=== PATIENT | female | born 1990 | race Caucasian/White ===

== ENCOUNTER 2017-02-09 09:59 | Inpatient (IN) | payer OTHER ==
[~2017-02-09] VITALS: Ht 160 cm; Wt 46.7 kg
[2017-02-12] MEDS ORDERED: ONDANSETRON ODT 4 MG TAB.RAPDIS SL PRN (20:30)
[2017-02-12] MEDS ORDERED: IBUPROFEN 600 MG TABLET PO PRN (20:30)
[2017-02-12] MEDS ORDERED: DEXTROSE 50% 50 ML DISP.SYRIN IV PRN (20:30)
[2017-02-12] MEDS ORDERED: LORAZEPAM 2 MG/1 ML VIAL IM PRN (20:30)
[2017-02-12] MEDS ORDERED: DICYCLOMINE HCL 20 MG TABLET PO PRN (20:30)
[2017-02-12] MEDS ORDERED: MAG HYDROX/AL HYDROX/SIMETH 30 ML LIQUID UDC PO PRN (20:30)
[2017-02-12] MEDS ORDERED: ONDANSETRON 4 MG/2 ML VIAL IM PRN (20:30)
[2017-02-12] MEDS ORDERED: LOPERAMIDE HCL 2 MG CAPSULE PO PRN ×2 (20:30)
[2017-02-12] MEDS ORDERED: BUPRENORPHINE HCL 2 MG TAB.SUBL SL PRN (20:30)
[2017-02-12] MEDS ORDERED: MAGNESIUM HYDROXIDE 30 ML LIQUID UDC PO PRN (20:30)
[2017-02-12] MEDS ORDERED: ACETAMINOPHEN 325 MG TABLET PO PRN (20:30)
[2017-02-12] MEDS ORDERED: DIAZEPAM 5 MG TABLET PO PRN (20:30)
[2017-02-12] MEDS ORDERED: MIRALAX 17 GM POWD.PACK PO PRN (20:30)
[2017-02-12] MEDS: BLOOD SUGAR DIAGNOSTIC 1 EACH STRIP VI SCH (21:00)
[2017-02-12] MEDS ORDERED: INSULIN GLARGINE,HUM 300 UNITS/3 ML CARTRIDGE SQ SCH (21:00)
[2017-02-12 21:08] LABS: BASOPHILS # (AUTO) 0.4 K/uL (0.0-8.0); EOSINOPHILS % (AUTO) 0.2 % (0.0-7.0); HEMATOCRIT 44.5 % (37-47); HEMOGLOBIN 14.9 G/DL (12.0-16.0); LYMPHOCYTES # (AUTO) 4.9 K/UL (0.8-4.8); LYMPHOCYTES % (AUTO) 37.4 % (20.5-51.5); MEAN CORPUSCULAR HEMOGLOBIN 28.9 UUG (27.0-31.0); MEAN CORPUSCULAR HGB CONC 34 g/dL (32.0-37.0); MEAN CORPUSCULAR VOLUME 86.2 FL (81.0-99.0); MONOCYTES # (AUTO) 1.1 K/UL (0.1-1.30); MONOCYTES % (AUTO) 8.4 % (0.0-11.0); NEUTROPHILS # (AUTO) 6.8 K/UL (1.8-8.9); PLATELET COUNT (AUTO) 416 K/UL (150-450); RED BLOOD CELL COUNT(AUTO) 5.16 MIL/UL (4.2-5.4); WHITE BLOOD COUNT (AUTO) 13.2 K/UL (4.0-11.2)
[2017-02-12 21:13] LABS: *URINE HCG, QUAL NEGATIVE (NEGATIVE)
[2017-02-12 21:20] LABS: ETHANOL < 3 MG/DL (0-0)
[2017-02-12 21:20] LABS: *AMPHETAMINE, URINE NEGATIVE (NEGATIVE); *BARBITURATE, URINE NEGATIVE (NEGATIVE); *CANNABINOID, URINE NEGATIVE (NEGATIVE); *COCCAINE, URINE POSITIVE (NEGATIVE); *OPIATE, URINE POSITIVE (NEGATIVE); *PHENCYCLIDINE SCREEN,URINE NEGATIVE (NEGATIVE)
[2017-02-12 21:21] LABS: ALANINE AMINOTRANSFERASE 20 U/L (14-59); ALKALINE PHOSPHATASE 155 U/L (50-136); ASPARTATE AMINOTRANSFERASE 20 U/L (15-37); BILIRUBIN,TOTAL 0.5 mg/dL (0.2-1.0); CARBON DIOXIDE 24 mmol/L (21-32); CHLORIDE 93 mmol/L (98-107); CREATININE 1.3 mg/dL (0.6-1.3); GLUCOSE 239 mg/dL (74-106); MAGNESIUM 1.7 mg/dL (1.8-2.4); POTASSIUM 4.8 mmol/L (3.5-5.1); TOTAL PROTEIN, SERUM 8.3 g/dL (6.4-8.2); UREA NITROGEN, BLOOD 16 mg/dL (7-18)
[2017-02-12] MEDS ORDERED: INSU100V10 SQ (21:33)
[2017-02-12] MEDS ORDERED: ONDA4TAB11 SL (21:33)
[2017-02-12] MEDS ORDERED: BUPR8TAB4 SL (21:39)
[2017-02-12] MEDS ORDERED: CEPH-570 PO (21:39)
[2017-02-12] MEDS ORDERED: SULF1TAB48 PO (21:39)
[2017-02-12] MEDS ORDERED: INSULIN REGULAR, HUMAN 300 UNIT/3 ML VIAL ONE (21:39)
[2017-02-12] MEDS ORDERED: INSU200I SQ (21:43)
[2017-02-12] MEDS ORDERED: INSULIN DETEMIR 300 UNIT/3 ML CARTRIDGE SQ ONE ×2 (21:45→21:58)
[2017-02-12] MEDS ORDERED: DIAZEPAM 10 MG TABLET PO SCH (22:00)
[2017-02-12] MEDS: INSULIN REGULAR, HUMAN 300 UNITS/3 ML VIAL SQ PRN (22:07)
[2017-02-12] MEDS: GABAPENTIN 300 MG CAPSULE PO SCH (22:08)
[2017-02-12] MEDS ORDERED: GABAPENTIN 300 MG CAPSULE ONE (22:08)
[2017-02-12] MEDS ORDERED: DIAZEPAM 10 MG TABLET ONE (22:09)
[2017-02-12] MEDS: diphenhydrAMINE 50 MG CAPSULE PO PRN (23:30)
[2017-02-12] MEDS: METHOCARBAMOL 750 MG TABLET PO PRN (23:31)
[2017-02-12] MEDS ORDERED: diphenhydrAMINE 50 MG CAPSULE ONE (23:40)
[2017-02-12] MEDS ORDERED: METHOCARBAMOL 750 MG TABLET ONE (23:46)
[2017-02-13] VITALS: BP 112/69
[2017-02-13 04:00] VITALS: BP 110/73
[2017-02-13 08:00] VITALS: BP 125/77
[2017-02-13] MEDS: BLOOD SUGAR DIAGNOSTIC 1 EACH STRIP VI SCH ×4 (08:15→21:04)
[2017-02-13] MEDS: DIAZEPAM 10 MG TABLET PO SCH ×2 (08:28→12:02)
[2017-02-13] MEDS: GABAPENTIN 300 MG CAPSULE PO SCH ×2 (08:28→20:41)
[2017-02-13] MEDS: INSULIN REGULAR, HUMAN 300 UNIT/3 ML VIAL SQ PRN ×3 (08:28→17:41)
[2017-02-13] MEDS: BUPRENORPHINE HCL 2 MG TAB.SUBL SL SCH ×4 (08:29→20:41)
[2017-02-13] MEDS ORDERED: TUBERCULIN,PURIF.PROT.DERIV. 5 TU/0.1 ML TEST ID ONE (09:00)
[2017-02-13 12:00] VITALS: BP 129/96
[2017-02-13] MEDS ORDERED: NICOTINE 14 MG/24HR PATCH TD PRN (12:30)
[2017-02-13] MEDS ORDERED: NICOTINE POLACRILEX 4 MG GUM-PK OF TEN BC PRN (12:30)
[2017-02-13] MEDS ORDERED: MAGNESIUM OXIDE 400 MG TABLET PO ONE (13:00)
[2017-02-13] MEDS ORDERED: IV NORMAL SALINE 500 ML IV ONE (14:00)
[2017-02-13] MEDS ORDERED: DIAZEPAM 10 MG TABLET PO SCH (15:00)
[2017-02-13] MEDS: CEPHALEXIN MONOHYDRATE 500 MG CAPSULE PO SCH ×2 (15:05→20:41)
[2017-02-13 16:00] VITALS: BP 136/98
[2017-02-13] MEDS: NEOMY/BACITRAC/POLYMI OINT 28.35 GM TUBE TOP SCH (16:50)
[2017-02-13] MEDS ORDERED: IV NS 1000 ML 1,000 ML IV PRN (17:00)
[2017-02-13] MEDS ORDERED: LORAZEPAM 2 MG/1 ML VIAL IV ONE ×2 (17:45→20:15)
[2017-02-13 20:00] VITALS: BP 135/101
[2017-02-13] MEDS ORDERED: LORAZEPAM 2 MG/1 ML VIAL ONE (20:27)
[2017-02-13] MEDS: SULFAMETH/TRIMETH 800/160 MG TABLET PO SCH (20:41)
[2017-02-13] MEDS: LACTOBACILLUS RHAMNOSUS GG 1 EACH CAPSULE PO SCH (20:41)
[2017-02-13] MEDS ORDERED: GABAPENTIN 300 MG CAPSULE ONE (20:46)
[2017-02-13] MEDS: INSULIN DETEMIR 300 UNIT/3 ML CARTRIDGE SQ SCH (20:47)
[2017-02-13] MEDS: INSULIN REGULAR, HUMAN 300 UNITS/3 ML VIAL SQ PRN (20:50)
[2017-02-13] MEDS ORDERED: INSULIN DETEMIR 300 UNIT/3 ML CARTRIDGE SQ SCH (21:00)
[2017-02-13] MEDS ORDERED: PHENOBARBITAL 60 MG TABLET ONE (21:51)
[2017-02-13] MEDS ORDERED: PHENOBARBITAL 60 MG TABLET PO SCH (22:30)
[2017-02-13] MEDS: DIAZEPAM 10 MG TABLET PO PRN (22:59)
[2017-02-13] MEDS: diphenhydrAMINE 50 MG CAPSULE PO PRN (22:59)
[2017-02-14] VITALS (7 sets, daily range): BP systolic 108–142; BP diastolic 60–93
[2017-02-14] MEDS ORDERED: LORAZEPAM 2 MG/1 ML VIAL IV ONE (00:15)
[2017-02-14] MEDS ORDERED: PHENOBARBITAL 60 MG TABLET PO ONE (00:15)
[2017-02-14] MEDS ORDERED: LORAZEPAM 2 MG/1 ML VIAL ONE (03:34)
[2017-02-14] MEDS ORDERED: PHENOBARBITAL 60 MG TABLET ONE (03:34)
[2017-02-14] MEDS: DIAZEPAM 10 MG TABLET PO PRN ×3 (03:39→21:21)
[2017-02-14] MEDS: BLOOD SUGAR DIAGNOSTIC 1 EACH STRIP VI SCH ×4 (08:12→21:27)
[2017-02-14] MEDS: INSULIN REGULAR, HUMAN 300 UNIT/3 ML VIAL SQ PRN ×3 (08:24→16:58)
[2017-02-14] MEDS: CEPHALEXIN MONOHYDRATE 500 MG CAPSULE PO SCH ×3 (09:00→21:21)
[2017-02-14] MEDS: LACTOBACILLUS RHAMNOSUS GG 1 EACH CAPSULE PO SCH ×2 (09:00→21:21)
[2017-02-14] MEDS: GABAPENTIN 300 MG CAPSULE PO SCH ×2 (09:00→14:09)
[2017-02-14] MEDS: BUPRENORPHINE HCL 2 MG TAB.SUBL SL SCH ×3 (09:00→21:21)
[2017-02-14] MEDS: SULFAMETH/TRIMETH 800/160 MG TABLET PO SCH ×2 (09:00→21:21)
[2017-02-14] MEDS ORDERED: DIAZEPAM 10 MG TABLET PO SCH (09:00)
[2017-02-14] MEDS: NEOMY/BACITRAC/POLYMI OINT 28.35 GM TUBE TOP SCH ×2 (09:00→16:59)
[2017-02-14] MEDS: PHENOBARBITAL 60 MG TABLET PO SCH ×4 (09:00→21:21)
[2017-02-14 10:07] LABS: HEPATITIS B SURFACE AG Negative (Negative)
[2017-02-14] MEDS: CLONIDINE HCL 0.1 MG TABLET PO PRN (12:54)
[2017-02-14] MEDS ORDERED: GABAPENTIN 300 MG CAPSULE PO SCH (21:00)
[2017-02-14] MEDS: INSULIN REGULAR, HUMAN 300 UNITS/3 ML VIAL SQ PRN (21:28)
[2017-02-14] MEDS: INSULIN DETEMIR 300 UNIT/3 ML CARTRIDGE SQ SCH (21:32)
[2017-02-15] VITALS: BP 95/64
[2017-02-15 04:00] VITALS: BP 115/80
[2017-02-15] MEDS ORDERED: BLOOD SUGAR DIAGNOSTIC 1 EACH STRIP VI ONE (04:45)
[2017-02-15] MEDS: BLOOD SUGAR DIAGNOSTIC 1 EACH STRIP VI SCH ×4 (08:33→20:15)
[2017-02-15 08:55] VITALS: BP 120/77
[2017-02-15] MEDS ORDERED: DIAZEPAM 5 MG TABLET PO SCH (09:00)
[2017-02-15] MEDS ORDERED: GABAPENTIN 300 MG CAPSULE PO SCH (09:00)
[2017-02-15] MEDS ORDERED: BUPRENORPHINE HCL 2 MG TAB.SUBL SL SCH (09:00)
[2017-02-15] MEDS: PHENOBARBITAL 60 MG TABLET PO SCH ×3 (09:24→20:16)
[2017-02-15] MEDS: DIAZEPAM 10 MG TABLET PO PRN (09:24)
[2017-02-15] MEDS: CEPHALEXIN MONOHYDRATE 500 MG CAPSULE PO SCH ×3 (09:25→20:16)
[2017-02-15] MEDS: LACTOBACILLUS RHAMNOSUS GG 1 EACH CAPSULE PO SCH ×2 (09:25→20:16)
[2017-02-15] MEDS: NEOMY/BACITRAC/POLYMI OINT 28.35 GM TUBE TOP SCH ×2 (09:25→16:58)
[2017-02-15] MEDS: INSULIN REGULAR, HUMAN 300 UNIT/3 ML VIAL SQ PRN ×3 (09:33→16:20)
[2017-02-15] MEDS: SULFAMETH/TRIMETH 800/160 MG TABLET PO SCH ×2 (09:43→20:16)
[2017-02-15 12:42] VITALS: BP 109/75
[2017-02-15] MEDS: GABAPENTIN 300 MG CAPSULE PO SCH ×2 (15:09→20:15)
[2017-02-15] MEDS: BUPRENORPHINE HCL 2 MG TAB.SUBL SL SCH ×2 (15:09→21:13)
[2017-02-15] MEDS: KETOROLAC TROMETHAMINE 30 MG INJ IM PRN (15:10)
[2017-02-15] MEDS ORDERED: BUPRENORPHINE HCL 2 MG TAB.SUBL SL ONE (16:00)
[2017-02-15] MEDS ORDERED: DIAZEPAM 10 MG TABLET PO ONE (16:00)
[2017-02-15] MEDS: BENZOCAINE ORAL CARE 12 ML BOTTLE MM PRN (16:14)
[2017-02-15 16:55] VITALS: BP 110/76
[2017-02-15 20:00] VITALS: BP 126/86
[2017-02-15] MEDS: CLONIDINE HCL 0.1 MG TABLET PO SCH (20:16)
[2017-02-15] MEDS: INSULIN DETEMIR 300 UNIT/3 ML CARTRIDGE SQ SCH (20:28)
[2017-02-15] MEDS: INSULIN REGULAR, HUMAN 300 UNITS/3 ML VIAL SQ PRN (20:29)
[2017-02-15] MEDS ORDERED: HYDROXYZINE PAMOATE 25 MG CAPSULE PO PRN (21:00)
[2017-02-15] MEDS ORDERED: DIAZEPAM 5 MG TABLET PO PRN (21:00)
[2017-02-15] MEDS ORDERED: DIAZEPAM 10 MG TABLET PO PRN ×2 (21:00)
[2017-02-16] VITALS: BP 108/70
[2017-02-16 04:00] VITALS: BP_SYST 107
[2017-02-16] MEDS: KETOROLAC TROMETHAMINE 30 MG INJ IM PRN ×3 (04:05→20:41)
[2017-02-16] MEDS: BENZOCAINE ORAL CARE 12 ML BOTTLE MM PRN ×2 (04:06→20:02)
[2017-02-16] MEDS: BLOOD SUGAR DIAGNOSTIC 1 EACH STRIP VI SCH ×4 (07:49→21:15)
[2017-02-16 08:00] VITALS: BP 106/76
[2017-02-16] MEDS: CEPHALEXIN MONOHYDRATE 500 MG CAPSULE PO SCH ×3 (08:36→20:38)
[2017-02-16] MEDS: GABAPENTIN 300 MG CAPSULE PO SCH ×3 (08:37→20:39)
[2017-02-16] MEDS: PHENOBARBITAL 60 MG TABLET PO SCH ×3 (08:37→20:39)
[2017-02-16] MEDS: CLONIDINE HCL 0.1 MG TABLET PO SCH ×2 (08:37→20:38)
[2017-02-16] MEDS: LACTOBACILLUS RHAMNOSUS GG 1 EACH CAPSULE PO SCH ×2 (08:37→20:38)
[2017-02-16] MEDS: SULFAMETH/TRIMETH 800/160 MG TABLET PO SCH ×2 (08:37→20:37)
[2017-02-16] MEDS: NEOMY/BACITRAC/POLYMI OINT 28.35 GM TUBE TOP SCH ×2 (08:38→17:33)
[2017-02-16] MEDS: BUPRENORPHINE HCL 2 MG TAB.SUBL SL SCH ×3 (08:38→20:40)
[2017-02-16] MEDS: INSULIN REGULAR, HUMAN 300 UNIT/3 ML VIAL SQ PRN ×2 (08:44→12:17)
[2017-02-16] MEDS ORDERED: DIAZEPAM 5 MG TABLET PO SCH (09:00)
[2017-02-16] MEDS ORDERED: INSULIN DETEMIR 300 UNIT/3 ML CARTRIDGE SQ SCH (09:00)
[2017-02-16 12:00] VITALS: BP 117/63
[2017-02-16] MEDS: METHOCARBAMOL 750 MG TABLET PO PRN (13:10)
[2017-02-16 16:00] VITALS: BP_SYST 112; BP_SYST 146; BP_DIAS 64; BP_DIAS 93
[2017-02-16 20:00] VITALS: BP 127/80
[2017-02-16] MEDS: INSULIN REGULAR, HUMAN 300 UNITS/3 ML VIAL SQ PRN (21:17)
[2017-02-16] MEDS: INSULIN DETEMIR 300 UNIT/3 ML CARTRIDGE SQ SCH (21:18)
[2017-02-16] MEDS: diphenhydrAMINE 50 MG CAPSULE PO PRN (22:47)
[2017-02-17] VITALS: BP 120/79
[2017-02-17 01:09] VITALS: BP 109/78
[2017-02-17] MEDS: CLONIDINE HCL 0.1 MG TABLET PO PRN (01:09)
[2017-02-17] MEDS ORDERED: DIAZEPAM 5 MG TABLET PO SCH (09:00)
[2017-02-17] MEDS ORDERED: BUPRENORPHINE HCL 2 MG TAB.SUBL SL SCH (09:00)
[2017-02-17] MEDS ORDERED: PHENOBARBITAL 60 MG TABLET PO SCH (09:00)
[2017-02-18] MEDS ORDERED: BUPRENORPHINE HCL 2 MG TAB.SUBL SL SCH (09:00)
== END 2017-02-17 04:09 | disposition left against medical advice (07) | DRG 894 ==
LOC: SRC 02-12 20:17
PROVIDERS: ADMIT Internal Medicine; ATTEND Internal Medicine
PROC: HZ2ZZZZ Detoxification Services for Substance Abuse Treatment (ICD-10-PCS; principal; 2017-02-12)
PROC: HZ51ZZZ Individual Psychotherapy for Substance Abuse Treatment, Behavioral (ICD-10-PCS; 2017-02-14)
DX: F11.23 Opioid dependence with withdrawal (principal); E10.65 Type 1 diabetes mellitus with hyperglycemia; F14.20 Cocaine dependence, uncomplicated; E83.42 Hypomagnesemia; E87.1 Hypo-osmolality and hyponatremia; E87.2 Acidosis; E87.8 Other disorders of electrolyte and fluid balance, not elsewhere classified; L02.415 Cutaneous abscess of right lower limb; L03.115 Cellulitis of right lower limb; F13.232 Sedative, hypnotic or anxiolytic dependence with withdrawal with perceptual disturbance; I15.9 Secondary hypertension, unspecified; Z59.0 Homelessness; Z82.49 Family history of ischemic heart disease and other diseases of the circulatory system; Z81.3 Family history of other psychoactive substance abuse and dependence; Z81.8 Family history of other mental and behavioral disorders; Z91.11 Patient's noncompliance with dietary regimen; Z91.14 Patient's other noncompliance with medication regimen; F17.210 Nicotine dependence, cigarettes, uncomplicated; F41.9 Anxiety disorder, unspecified; Z91.89 Other specified personal risk factors, not elsewhere classified; Z79.4 Long term (current) use of insulin; E86.1 Hypovolemia; Z59.1 Inadequate housing; B18.2 Chronic viral hepatitis C; K03.81 Cracked tooth; F32.9 Major depressive disorder, single episode, unspecified; R74.0 Nonspecific elevation of levels of transaminase and lactic acid dehydrogenase [LDH]
CPT/HCPCS: 36415; 80307; 80353; 80361; 83735; 84703; 85025; 86592; 86705; 86803; 87340; 87806; A4663; A9150; G0480; J1815; J1885; J2060; J7030; J8499; Q0163

== ENCOUNTER 2017-02-24 15:57 | Emergency (ER) | payer OTHER ==
[~2017-02-24] VITALS: Ht 160 cm; Wt 54.4 kg
[~2017-02-24 15:57] MED LIST: BACL10TA PO; BUPR-51 PO; CEPH-570 PO; DICL500C PO; IBUP-1955 PO; IBUP-1957 PO; INSU100C; INSU100V10 SQ; INSU100V28; INSU100V7 SQ; INSU200I SQ; LIDO10VI IJ; MUPI22OI2 TP; QUET50TA PO; SULF1TAB48 PO; TETR-62 OP; TRAZ-144 PO
--- NOTE | 2017-02-24 16:18 | NUR ---
PT IS IN ROOM #2A. DR WILD EVALUATED THE PT.
[2017-02-24] MEDS ORDERED: ONDA8TAB6 PO (16:22)
[2017-02-24] MEDS ORDERED: BUPR2TAB3 SL (16:22)
[2017-02-24] MEDS ORDERED: CLON0.1T PO (16:22)
[2017-02-24] MEDS ORDERED: MUPI22OI2 TOP (16:22)
[2017-02-24] MEDS ORDERED: GABA-534 PO (16:22)
[2017-02-24] MEDS ORDERED: PHENOBARBITAL 30 MG PO (16:22)
[2017-02-24] MEDS ORDERED: TRAZ-144 PO (16:22)
[2017-02-24] MEDS ORDERED: INSULIN REGULAR, HUMAN 1,000 UNITS/10 ML VIAL SUBCUT ONE (16:45)
--- NOTE | 2017-02-24 16:51 | NUR ---
PHARMACY NOTE; I IGOR MAY RN DRAW 8 UNITS REGULAR INSULIN FOR ADMINISTRATION.
[2017-02-24] MEDS ORDERED: INSULIN REGULAR, HUMAN 300 UNIT/3 ML VIAL ONE (17:05)
[2017-02-24] MEDS ORDERED: IV NORMAL SALINE 1000 ML BAG IV ONE (17:30)
[2017-02-24] MEDS ORDERED: LORAZEPAM 2 MG/1 ML VIAL IV ONE ×2 (17:45→18:15)
--- NOTE | 2017-02-24 17:45 | NUR ---
Called Priyank for Picc Line/Mid Line placement as per order, no answer ), left urgent message.
--- NOTE | 2017-02-24 17:56 | NUR ---
Called [facility] for Picc Line/ Mid Line placement, no answer at [phone], left urgent message.
[2017-02-24 17:57] LABS: *URINE HCG, QUAL NEGATIVE (NEGATIVE)
[2017-02-24] MEDS ORDERED: LORAZEPAM 2 MG/1 ML VIAL ONE ×2 (18:07→18:24)
[2017-02-24] MEDS ORDERED: MUPIROCIN 2% OINT 22 GM TUBE TP ONE (18:30)
[2017-02-24] MEDS ORDERED: VANCOMYCIN IV 1,000 MG in IV DEXTROSE 5% 250 ML IV ONE (18:30)
[2017-02-24 18:41] LABS: CREATININE 0.9 mg/dL (0.6-1.3)
[2017-02-24] MEDS ORDERED: VANCOMYCIN IV 200 ML ONE (18:59)
[2017-02-24] MEDS ORDERED: MUPIROCIN 2% OINT 22 GM TUBE ONE (18:59)
--- NOTE | 2017-02-24 19:07 | NUR ---
REPORT GIVEN TO EPIC SPECIALIST RN.
[2017-02-24] MEDS ORDERED: FUROSEMIDE 20 MG TABLET PO ONE (19:15)
--- NOTE | 2017-02-24 19:21 | NUR ---
ASSUMED CARE OF PATIENT. NO ACUTE DISTRESS NOTED. RESPIRATIONS EVEN AND UNLABORED. NO SOB OR CONGESTION NOTED. LUNG SOUNDS CLEAR. NO CARDIOVASCULAR DISTRESS NOTED. ALL PULSES PRESENT AND PALPABLE. SKIN IS WARM AND DRY TO THE TOUCH.
[2017-02-24] MEDS ORDERED: FUROSEMIDE 20 MG TABLET ONE (19:25)
--- NOTE | 2017-02-24 19:38 | NUR ---
Patient discharged to home in stable conditon. Written and verbal after care instructions given. Patient verbalizes understanding of instructions.Peripheral IV removed prior to discharge. Ambulated from ER with stable gait. All belongings with patient. patient accompanied by her friend, and will be driven home in a private vehicle by her friend.
[2017-02-24 19:41] VITALS: BP 124/81
== END 2017-02-24 19:42 | disposition home or self-care (01) ==
LOC: ER 15:57
DX: S71.131A Puncture wound without foreign body, right thigh, initial encounter (principal); L03.115 Cellulitis of right lower limb; E11.9 Type 2 diabetes mellitus without complications; F32.9 Major depressive disorder, single episode, unspecified; F41.9 Anxiety disorder, unspecified; Z79.4 Long term (current) use of insulin; R60.0 Localized edema; F17.200 Nicotine dependence, unspecified, uncomplicated; X58.XXXA Exposure to other specified factors, initial encounter; Y93.89 Activity, other specified; Y92.89 Other specified places as the place of occurrence of the external cause; Y99.8 Other external cause status
CPT/HCPCS: 36415; 71010; 84520; 84703; 93005; A4663; J1815; J2060; J3370; J7030

== ENCOUNTER 2017-03-23 15:52 | Emergency (ER) | payer OTHER ==
[~2017-03-23] VITALS: Ht 160 cm; Wt 59.0 kg
[~2017-03-23 15:52] MED LIST changes: +BUPR2TAB3 SL; +CLON0.1T PO; +GABA-534 PO; +MUPI22OI2 TOP; +ONDA8TAB6 PO; +PHENOBARBITAL 30 MG PO
[2017-03-23] MEDS ORDERED: FURO-152 PO (16:45)
[2017-03-23] MEDS ORDERED: POTA10CA43 PO (16:46)
[2017-03-23] MEDS ORDERED: INSULIN REGULAR, HUMAN 100 UNIT in IV NORMAL SALINE 99 ML IV PRN ×2 (17:00)
[2017-03-23] MEDS ORDERED: IV NORMAL SALINE 1000 ML BAG IV ONE (17:00)
[2017-03-23 17:31] LABS: *URINE HCG, QUAL NEGATIVE (NEGATIVE)
[2017-03-23 17:38] LABS: *BILIRUBIN,URIN NEGATIVE (NEGATIVE); *BLOOD, URINE NEGATIVE (NEGATIVE); *CLARITY,URINE CLEAR (CLEAR); *COLOR,URINE LIGHT YELLOW (YELLOW); *KETONES,URINE NEGATIVE (NEGATIVE); *PROTEIN,URINE NEGATIVE (NEGATIVE); *UROBILINOGEN,URINE 0.2 E.U./dl (NORMAL); LEUKOCYTE ESTERASE ,URINE NEGATIVE (NEGATIVE); NITRITE, URINE NEGATIVE (NEGATIVE); UGLUCOSE 2+ (NEGATIVE)
[2017-03-23 17:40] LABS: WBC,URINE 0-3 /HPF (0-3)
[2017-03-23 17:41] LABS: BACTERIA,URINE FEW /HPF (NONE SEEN); SQUAMOUS EPITHELIAL CELL,UR MODERATE /HPF (NONE SEEN)
--- NOTE | 2017-03-23 18:27 | NUR ---
CALLED [facility] FOR PICC LINE AT [phone]. ETA COUPLE OF HOURS
--- NOTE | 2017-03-23 19:15 | NUR ---
hands of report given to maykel sharmarn
[2017-03-23 20:07] LABS: BASOPHILS # (AUTO) 0.1 K/uL (0.0-8.0); BASOPHILS % (AUTO) 0.6 % (0.0-2.0); EOSINOPHILS # (AUTO) 0.1 K/uL (0.0-0.7); HEMATOCRIT 37.5 % (31.2-41.9); HEMOGLOBIN 12.6 g/dL (10.9-14.3); LYMPHOCYTES # (AUTO) 4.6 K/uL (20.0-40.0); LYMPHOCYTES % (AUTO) 33.2 % (20.5-51.5); MEAN CORPUSCULAR HEMOGLOBIN 29.7 uug (24.7-32.8); MEAN CORPUSCULAR HGB CONC 34 g/dL (32.3-35.6); MEAN CORPUSCULAR VOLUME 88.1 fL (75.5-95.3); MONOCYTES # (AUTO) 1.2 K/uL (2.0-10.0); MONOCYTES % (AUTO) 8.7 % (0.0-11.0); NEUTROPHILS # (AUTO) 7.8 K/uL (1.8-8.9); NEUTROPHILS % (AUTO) 56.5 % (38.5-71.5); PLATELET COUNT (AUTO) 309 K/uL (179-408); RED BLOOD CELL COUNT(AUTO) 4.26 MIL/uL (3.63-4.92); WHITE BLOOD COUNT (AUTO) 13.8 K/uL (3.8-11.8)
[2017-03-23 20:21] LABS: BILIRUBIN,DIRECT 0.1 mg/dL (0.0-0.2); BILIRUBIN,TOTAL 0.2 mg/dL (0.2-1.0); CREATININE 0.8 mg/dL (0.6-1.3); TOTAL PROTEIN, SERUM 7.2 g/dL (6.4-8.2)
[2017-03-23 20:25] LABS: POTASSIUM 3.8 mmol/L (3.5-5.1)
--- NOTE | 2017-03-23 20:53 | NUR ---
Lab has critical value -- Lactic acid = 3.1, notified.
[2017-03-23] MEDS ORDERED: DEXTROSE 50% 50 ML DISP.SYRIN IV ONE (21:15)
[2017-03-23] MEDS ORDERED: IV D5W-0.45% NS +20 KCL 1,000 ML IV ONE (21:15)
--- NOTE | 2017-03-23 21:25 | NUR ---
PT PROVIDED SNACK.
[2017-03-23] MEDS ORDERED: DEXTROSE 50% 50 ML DISP.SYRIN ONE (21:31)
--- NOTE | 2017-03-23 22:28 | NUR ---
LAB AT PT BEDSIDE
--- NOTE | 2017-03-23 23:00 | NUR ---
Patient discharged to home in stable conditon. Written and verbal after care instructions given. Patient verbalizes understanding of instructions. IV and PICC discontinued, catheters intact. ambulated w/ steady gait. took all belongings
[2017-03-24 00:46] VITALS: BP 122/84
== END 2017-03-23 23:00 | disposition home or self-care (01) ==
LOC: ER 15:55
DX: E10.65 Type 1 diabetes mellitus with hyperglycemia (principal); F17.200 Nicotine dependence, unspecified, uncomplicated; Z79.4 Long term (current) use of insulin
CPT/HCPCS: 36415; 36569; 71045; 80048; 80076; 81001; 82962 ×5; 83605 ×2; 83690; 84703 ×2; 85025; 87040; 87086; 93005; 96361; 96374; 96375; 99285; A4663; J1815; J3490 ×3; J7030

== ENCOUNTER 2017-04-27 12:35 | Emergency (ER) | payer OTHER ==
[~2017-04-27] VITALS: Ht 160 cm; Wt 63.5 kg
[~2017-04-27 12:35] MED LIST changes: -BUPR-51 PO; -BUPR2TAB3 SL; -CEPH-570 PO; -CLON0.1T PO; -DICL500C PO; +FURO-152 PO; -IBUP-1955 PO; -IBUP-1957 PO; -INSU100V7 SQ; -LIDO10VI IJ; -MUPI22OI2 TOP; -MUPI22OI2 TP; -ONDA8TAB6 PO; -PHENOBARBITAL 30 MG PO; +POTA10CA43 PO; -SULF1TAB48 PO; -TETR-62 OP
[2017-04-27] MEDS ORDERED: FURO80TA87 PO (12:43)
[2017-04-27] MEDS ORDERED: INSULIN (12:43)
--- NOTE | 2017-04-27 13:33 | NUR ---
PATIENT WAS SEEN BY DR GIRALDO. LABS DRAWN, XRAY PENDING. PATIENT IS AWAKE AND ALERT. SHE IS AMBULATORY IN STEADY GAIT.
--- NOTE | 2017-04-27 13:52 | NUR ---
PATIENT STATES SHE HAS BEEN OFF HEROIN AND CRACK FOR 52 DAYS AND HAS BEEN SWOLLEN IN HANDS AND FEET SINCE. DR GIRALDO AWARE.
[2017-04-27 14:12] LABS: BASOPHILS # (AUTO) 0.1 K/uL (0.0-8.0); BASOPHILS % (AUTO) 1.1 % (0.0-2.0); EOSINOPHILS # (AUTO) 0.1 K/uL (0.0-0.7); EOSINOPHILS % (AUTO) 0.6 % (0.0-7.0); HEMATOCRIT 39.7 % (31.2-41.9); HEMOGLOBIN 13.3 g/dL (10.9-14.3); LYMPHOCYTES # (AUTO) 3.4 K/uL (20.0-40.0); LYMPHOCYTES % (AUTO) 26.1 % (20.5-51.5); MEAN CORPUSCULAR HEMOGLOBIN 29.8 uug (24.7-32.8); MEAN CORPUSCULAR HGB CONC 34 g/dL (32.3-35.6); MEAN CORPUSCULAR VOLUME 88.7 fL (75.5-95.3); MONOCYTES # (AUTO) 0.8 K/uL (2.0-10.0); MONOCYTES % (AUTO) 6.4 % (0.0-11.0); NEUTROPHILS # (AUTO) 8.7 K/uL (1.8-8.9); NEUTROPHILS % (AUTO) 65.8 % (38.5-71.5); PLATELET COUNT (AUTO) 296 K/uL (179-408); RED BLOOD CELL COUNT(AUTO) 4.47 MIL/uL (3.63-4.92); WHITE BLOOD COUNT (AUTO) 13.2 K/uL (3.8-11.8)
[2017-04-27 14:21] LABS: CREATININE 0.6 mg/dL (0.6-1.3); POTASSIUM 3.9 mmol/L (3.5-5.1)
--- NOTE | 2017-04-27 14:21 | NUR ---
URINE SENT TO LAB.
[2017-04-27 14:37] LABS: BILIRUBIN,TOTAL 0.2 mg/dL (0.2-1.0); TOTAL PROTEIN, SERUM 7.5 g/dL (6.4-8.2)
[2017-04-27 14:39] LABS: *BILIRUBIN,URIN NEGATIVE (NEGATIVE); *BLOOD, URINE NEGATIVE (NEGATIVE); *COLOR,URINE YELLOW (YELLOW); *KETONES,URINE NEGATIVE (NEGATIVE); *PROTEIN,URINE NEGATIVE (NEGATIVE); *UROBILINOGEN,URINE 0.2 E.U./dl (NORMAL); LEUKOCYTE ESTERASE ,URINE NEGATIVE (NEGATIVE); NITRITE, URINE NEGATIVE (NEGATIVE); PH,URINE 8.5 (5.0-8.0); UGLUCOSE NEGATIVE (NEGATIVE)
[2017-04-27 14:41] LABS: *URINE HCG, QUAL NEGATIVE (NEGATIVE)
[2017-04-27 14:53] LABS: *AMPHETAMINE, URINE NEGATIVE (NEGATIVE); *BARBITURATE, URINE NEGATIVE (NEGATIVE); *CANNABINOID, URINE NEGATIVE (NEGATIVE); *CLARITY,URINE HAZY (CLEAR); *COCCAINE, URINE NEGATIVE (NEGATIVE); *OPIATE, URINE NEGATIVE (NEGATIVE); *PHENCYCLIDINE SCREEN,URINE NEGATIVE (NEGATIVE)
[2017-04-27 14:54] LABS: BACTERIA,URINE FEW /HPF (NONE SEEN); SQUAMOUS EPITHELIAL CELL,UR MANY /HPF (NONE SEEN); WBC,URINE 0-3 /HPF (0-3)
--- NOTE | 2017-04-27 15:25 | NUR ---
DC, RX AND FOLLOW UP INSTRUCTIONS GIVEN AND EXPLAINED TO PATIENT WHO STATES SHE UNDERSTANDS ALL INSTRUCTIONS.. AMBULATORY WITH STEADY GAIT.
== END 2017-04-27 15:27 | disposition home or self-care (01) ==
LOC: ER 12:35
DX: R60.0 Localized edema (principal); F11.10 Opioid abuse, uncomplicated; Z79.4 Long term (current) use of insulin; F17.200 Nicotine dependence, unspecified, uncomplicated; I50.9 Heart failure, unspecified
CPT/HCPCS: 36415; 70030-TC; 71045; 80307; 84703; 85025; 93005; A4663

== ENCOUNTER 2017-11-11 12:57 | Emergency (ER) | payer OTHER ==
[~2017-11-11] VITALS: Ht 160 cm; Wt 62.6 kg
[~2017-11-11 12:57] MED LIST changes: -BACL10TA PO; -FURO-152 PO; +FURO80TA87 PO; -GABA-534 PO; -INSU100C; -INSU100V10 SQ; -INSU100V28; -INSU200I SQ; +INSULIN; -POTA10CA43 PO; -QUET50TA PO; -TRAZ-144 PO
[2017-11-11 14:14] LABS: *BILIRUBIN,URIN NEGATIVE (NEGATIVE); *BLOOD, URINE NEGATIVE (NEGATIVE); *CLARITY,URINE CLEAR (CLEAR); *COLOR,URINE YELLOW (YELLOW); *KETONES,URINE 2+ (NEGATIVE); *PROTEIN,URINE NEGATIVE (NEGATIVE); *UROBILINOGEN,URINE 0.2 E.U./dl (NORMAL); LEUKOCYTE ESTERASE ,URINE NEGATIVE (NEGATIVE); NITRITE, URINE NEGATIVE (NEGATIVE); UGLUCOSE 2+ (NEGATIVE)
[2017-11-11 14:21] LABS: BACTERIA,URINE NONE SEEN /HPF (NONE SEEN); RBC,URINE 0-3 /HPF (0-3); SQUAMOUS EPITHELIAL CELL,UR FEW /HPF (NONE SEEN); WBC,URINE 0-3 /HPF (0-3)
[2017-11-11 14:30] LABS: BASOPHILS # (AUTO) 0.1 K/uL (0.0-8.0); BASOPHILS % (AUTO) 1.2 % (0.0-2.0); EOSINOPHILS # (AUTO) 0.1 K/uL (0.0-0.7); EOSINOPHILS % (AUTO) 0.9 % (0.0-7.0); HEMATOCRIT 36.2 % (31.2-41.9); HEMOGLOBIN 12.6 g/dL (10.9-14.3); LYMPHOCYTES # (AUTO) 3.8 K/uL (20.0-40.0); LYMPHOCYTES % (AUTO) 31.1 % (20.5-51.5); MEAN CORPUSCULAR HEMOGLOBIN 30.3 uug (24.7-32.8); MEAN CORPUSCULAR HGB CONC 35 g/dL (32.3-35.6); MEAN CORPUSCULAR VOLUME 86.8 fL (75.5-95.3); MONOCYTES # (AUTO) 0.7 K/uL (2.0-10.0); NEUTROPHILS # (AUTO) 7.5 K/uL (1.8-8.9); NEUTROPHILS % (AUTO) 60.8 % (38.5-71.5); PLATELET COUNT (AUTO) 256 K/uL (179-408); RED BLOOD CELL COUNT(AUTO) 4.16 MIL/uL (3.63-4.92); WHITE BLOOD COUNT (AUTO) 12.3 K/uL (3.8-11.8)
[2017-11-11 14:39] LABS: CREATININE 0.9 mg/dL (0.6-1.3); POTASSIUM 4.2 mmol/L (3.5-5.1)
[2017-11-11 14:48] LABS: BILIRUBIN,DIRECT 0.1 mg/dL (0.0-0.2); BILIRUBIN,TOTAL 0.3 mg/dL (0.2-1.0); TOTAL PROTEIN, SERUM 6.8 g/dL (6.4-8.2)
--- NOTE | 2017-11-11 15:39 | NUR ---
MSE COMPLETED, PT D/C'D HOME PER MD.
[2017-11-11 15:40] VITALS: BP 112/74
== END 2017-11-11 15:42 | disposition home or self-care (01) ==
LOC: ER 12:57
DX: R22.33 Localized swelling, mass and lump, upper limb, bilateral (principal); E10.9 Type 1 diabetes mellitus without complications; F17.200 Nicotine dependence, unspecified, uncomplicated; F11.10 Opioid abuse, uncomplicated; F15.10 Other stimulant abuse, uncomplicated; Z90.89 Acquired absence of other organs
CPT/HCPCS: 36415; 80048; 80076; 81001; 83036; 84443; 84703; 85025; 86803; 99284; 99406; A4663

== ENCOUNTER 2017-12-30 11:37 | Emergency (ER) | payer BC, MEDICAID ==
[~2017-12-30] VITALS: Ht 160 cm; Wt 63.5 kg
[2017-12-30 12:32] LABS: BASOPHILS # (AUTO) 0.1 K/uL (0.0-8.0); BASOPHILS % (AUTO) 0.7 % (0.0-2.0); EOSINOPHILS # (AUTO) 0.1 K/uL (0.0-0.7); EOSINOPHILS % (AUTO) 1.4 % (0.0-7.0); HEMATOCRIT 38.5 % (31.2-41.9); HEMOGLOBIN 13.2 g/dL (10.9-14.3); LYMPHOCYTES # (AUTO) 3.1 K/uL (20.0-40.0); LYMPHOCYTES % (AUTO) 38.9 % (20.5-51.5); MEAN CORPUSCULAR HEMOGLOBIN 30.1 uug (24.7-32.8); MEAN CORPUSCULAR HGB CONC 34 g/dL (32.3-35.6); MEAN CORPUSCULAR VOLUME 87.8 fL (75.5-95.3); MONOCYTES # (AUTO) 0.6 K/uL (2.0-10.0); NEUTROPHILS # (AUTO) 4.1 K/uL (1.8-8.9); PLATELET COUNT (AUTO) 289 K/uL (179-408); RED BLOOD CELL COUNT(AUTO) 4.39 MIL/uL (3.63-4.92); WHITE BLOOD COUNT (AUTO) 8.1 K/uL (3.8-11.8)
[2017-12-30 12:44] LABS: CREATININE 0.6 mg/dL (0.6-1.3); POTASSIUM 3.6 mmol/L (3.5-5.1)
[2017-12-30 12:50] LABS: BILIRUBIN,TOTAL 0.5 mg/dL (0.2-1.0); TOTAL PROTEIN, SERUM 7.5 g/dL (6.4-8.2)
--- NOTE | 2017-12-30 12:50 | NUR ---
mse completed, Patient discharged to home in stable conditon. Written and verbal after care instructions given. Patient verbalizes understanding of instructions.
[2017-12-30 13:25] VITALS: BP 120/84
[2017-12-31 11:06] LABS: AFP, TUMOR MARKER 4.3 ng/mL (0.0-8.3); CANCER AG, 125 10.1 U/mL (0.0-38.1); CARBOHYDRATE ANTIGEN, 19-9 23 U/mL (0-35)
[2017-12-31 12:06] LABS: HEPATITIS A AB, IgM Negative (Negative); HEPATITIS A AB, TOTAL Negative (Negative); HEPATITIS B SURFACE AB Reactive (.); HEPATITIS B SURFACE AG Negative (Negative)
[2017-12-31 14:06] LABS: *ANTI-SCLERODERMA-70 AB <0.2 AI (0.0-0.9); *SJOGREN'S ANTI-SS-A <0.2 AI (0.0-0.9); *SJOGREN'S ANTI-SS-B <0.2 AI (0.0-0.9); *SMITH ANTIBODIES <0.2 AI (0.0-0.9); ANTI-DNA(DS) AB, QN 2 IU/mL (0-9)
[2018-01-02 10:11] LABS: *HCV QUANT HCV Not Detected IU/mL (.)
== END 2017-12-30 12:55 | disposition home or self-care (01) ==
LOC: ER 11:37
DX: Z13.0 Encounter for screening for diseases of the blood and blood-forming organs and certain disorders involving the immune mechanism (principal); E10.9 Type 1 diabetes mellitus without complications; F17.200 Nicotine dependence, unspecified, uncomplicated; F11.10 Opioid abuse, uncomplicated; F15.10 Other stimulant abuse, uncomplicated; Z90.89 Acquired absence of other organs
CPT/HCPCS: 36415; 80053; 80061; 82105; 82150; 82378; 83550; 83690; 85025; 85730; 86038; 86301; 86304; 86704; 86705; 86706; 86708; 86709; 86803; 87340; 87521; 99284; A4663

== ENCOUNTER 2018-02-05 06:01 | Emergency (ER) | payer OTHER, MEDICAID ==
[~2018-02-05] VITALS: Ht 160 cm; Wt 67.1 kg
[2018-02-05] MEDS ORDERED: IV NORMAL SALINE 1000 ML BAG IV ONE (06:45)
--- NOTE | 2018-02-05 07:20 | NUR ---
pm rn attempted heplocking unable, pt refuses more attempts t this point.
[2018-02-05 07:37] LABS: *URINE HCG, QUAL NEGATIVE (NEGATIVE)
[2018-02-05 08:06] LABS: *AMPHETAMINE, URINE NEGATIVE (NEGATIVE); *BARBITURATE, URINE NEGATIVE (NEGATIVE); *CANNABINOID, URINE NEGATIVE (NEGATIVE); *COCCAINE, URINE NEGATIVE (NEGATIVE); *OPIATE, URINE NEGATIVE (NEGATIVE); *PHENCYCLIDINE SCREEN,URINE NEGATIVE (NEGATIVE)
--- NOTE | 2018-02-05 09:16 | NUR ---
Patient discharged to home in stable conditon. Written and verbal after care instructions given. Patient verbalizes understanding of instructions.pt walks in steady gait, pt says feels better. no sign of distress. pt is not driving
[2018-02-05 09:17] VITALS: BP 111/71
== END 2018-02-05 09:18 | disposition home or self-care (01) ==
LOC: ER 06:07
DX: E10.649 Type 1 diabetes mellitus with hypoglycemia without coma (principal); F11.10 Opioid abuse, uncomplicated; F14.10 Cocaine abuse, uncomplicated; Z90.89 Acquired absence of other organs
CPT/HCPCS: 70450; 80307; 84703; 93005; A4663